=== PATIENT | female | born 1970 | race Two or more races ===

== ENCOUNTER 2019-10-12 09:51 | Emergency (ER) | payer OTHER ==
[~2019-10-12] VITALS: Ht 149.9 cm; Wt 59.0 kg
[2019-10-12] MEDS ORDERED: FORTAMET1000 MG PO ×2 (10:39→10:41)
[2019-10-12] MEDS ORDERED: [UNRECOGNIZED DRUG - OTHER] PO (10:40)
== END 2019-10-12 13:20 | disposition home or self-care (01) ==
LOC: ER 09:51
DX: J06.9 Acute upper respiratory infection, unspecified (principal)

== ENCOUNTER 2021-03-11 12:18 | Emergency (ER) | payer OTHER ==
[~2021-03-11] VITALS: Ht 149.9 cm; Wt 54.4 kg
[~2021-03-11 12:18] MED LIST: FORTAMET1000 MG PO; [UNRECOGNIZED DRUG - OTHER] PO
[2021-03-11] MEDS ORDERED: FORTAMET1000 MG PO (12:33)
[2021-03-11] MEDS ORDERED: GRALISE600 MG PO (12:33)
[2021-03-11] MEDS ORDERED: GLIPIZIDE XL10 MG PO (12:33)
[2021-03-11] MEDS ORDERED: KETO10TA2 PO (16:08)
[2021-03-11] MEDS ORDERED: TAMS0.4C PO (16:08)
== END 2021-03-11 16:11 | disposition home or self-care (01) ==
LOC: ER 12:18
DX: N20.0 Calculus of kidney (principal); K80.20 Calculus of gallbladder without cholecystitis without obstruction

== ENCOUNTER 2021-03-13 18:54 | Inpatient (IN) | payer OTHER ==
[~2021-03-13] VITALS: Ht 149.9 cm; Wt 54.4 kg
[~2021-03-13 18:54] MED LIST changes: +GLIPIZIDE XL10 MG PO; +GRALISE600 MG PO; +KETO10TA2 PO; +TAMS0.4C PO
== END 2021-03-24 14:12 | disposition home or self-care (01) | DRG 444 ==
LOC: ER 18:54 → SURG 03-14 13:49 → SEC-K 03-14 13:49 → SURG 03-14 20:23 → O/R 03-23 21:15 → SURG 03-23 21:19
PROVIDERS: ADMIT Surgery; ATTEND Surgery
PROC: BW2110Z Computerized Tomography (CT Scan) of Abdomen and Pelvis using Low Osmolar Contrast, Unenhanced and Enhanced (ICD-10-PCS; 2021-03-14)
PROC: BW40ZZZ Ultrasonography of Abdomen (ICD-10-PCS; 2021-03-14)
PROC: BW40ZZZ Ultrasonography of Abdomen (ICD-10-PCS; 2021-03-15)
PROC: 0F9 Hepatobiliary System and Pancreas, Drainage (ICD-10-PCS; principal; 2021-03-16)
PROC: 4A033R1 Measurement of Arterial Saturation, Peripheral, Percutaneous Approach (ICD-10-PCS; 2021-03-18)
DX: K80.00 Calculus of gallbladder with acute cholecystitis without obstruction (principal); A41.9 Sepsis, unspecified organism; A41.50 Gram-negative sepsis, unspecified; N17.8 Other acute kidney failure; D68.4 Acquired coagulation factor deficiency; E87.1 Hypo-osmolality and hyponatremia; E86.0 Dehydration; D72.828 Other elevated white blood cell count; D63.8 Anemia in other chronic diseases classified elsewhere; I10 Essential (primary) hypertension; E11.8 Type 2 diabetes mellitus with unspecified complications; Z79.84 Long term (current) use of oral hypoglycemic drugs; Z20.822 Contact with and (suspected) exposure to COVID-19

== ENCOUNTER 2021-10-13 16:40 | Emergency (ER) | payer OTHER ==
[~2021-10-13] VITALS: Ht 149.9 cm; Wt 51.3 kg
[2021-10-13] MEDS ORDERED: TYLENOL (17:01)
== END 2021-10-13 17:33 | disposition home or self-care (01) ==
LOC: ER 16:40
DX: M54.9 Dorsalgia, unspecified (principal); E11.9 Type 2 diabetes mellitus without complications; Z79.84 Long term (current) use of oral hypoglycemic drugs

== ENCOUNTER 2023-04-15 11:59 | Emergency (ER) | payer OTHER ==
[~2023-04-15] VITALS: Ht 149.9 cm; Wt 56.7 kg
[~2023-04-15 11:59] MED LIST changes: +TYLENOL
== END 2023-04-15 21:38 | disposition home or self-care (01) ==
LOC: ER 11:59
DX: K29.00 Acute gastritis without bleeding (principal); R11.10 Vomiting, unspecified; E11.9 Type 2 diabetes mellitus without complications